=== PATIENT | male | born 1970 | race Caucasian/White ===

== ENCOUNTER 2023-04-30 09:53 | Observation (INO) | payer BC, SELFPAY ==
[2023-04-30] VITALS (20 sets, daily range): BP systolic 168–217; BP diastolic 100–118; PULSE 59–93; RESP 13–24; TEMP 35.8–36.3; O2SAT 98–100; BMI 73.7
--- NOTE | ~2023-04-30 | MR_ITS ---
EXAMINATION: MR brain/brain stem wo/w con DATE: 04/30/2023 17:07 INDICATION: Left-sided weakness TECHNIQUE: Magnetic resonance imaging (MRI) of the brain and brainstem was performed without intraven ous contrast. Sequences included sagittal and axial T1-weighted SE, axial diffusion-weighted FS SE, a xial T2*-weighted GRE, axial T2-weighted FLAIR, and axial T2-weighted FSE. Postcontrast axial and cor onal T1-weighted SE was obtained. Apparent diffusion coefficient (ADC) maps were created. COMPARISON: Head CT and CT angiogram dated 04/30/2023 FINDINGS: Small region of restricted diffusion consistent with acute infarct at the right posterior pastor. Small old infarct in the left cerebellar hemisphere additional small old lacunar infarcts at the right sharron lamus and right basal ganglia. No intracranial hemorrhage or abnormal intracranial mass lesion. There are scattered areas of nonspecific increased T2-weighted signal intensity in the cerebral white angelo er, predominantly involving the deep and periventricular white matter. There are no intraparenchymal signal abnormalities seen on the other pulse sequences. The ventricles are symmetric and normal in si ze. There are no abnormal extra-axial fluid collections. Flow voids are seen in the cerebral arteries on the T2-weighted sequences consistent with their expected patency. Visualized orbits and soft tiss ues are unremarkable. Mild mucosal thickening the paranasal sinuses with mucous retention cyst in the right maxillary sinus. There are no areas of abnormal enhancement on the post contrast images. IMPRESSION: 1. Small acute infarct in the right posterior pastor. 2. Small old infarcts in the left cerebellar hemisphere and at the right thalamus and basal ganglia. 3. A few scattered small nonspecific foci of vasogenic white matter T2 hyperintensity which is within normal limits for age and likely sequela of chronic small vessel schema disease. Reviewed, dictated and finalized at location A. IMPRESSION: 1. Small acute infarct in the right posterior pastor. 2. Small old infarcts in the left cerebellar hemisphere and at the right thalam us and basal ganglia. 3. A few scattered small nonspecific foci of vasogenic white matter T2 hyperint ensity which is within normal limits for age and likely sequela of chronic smal l vessel schema disease.
--- NOTE | ~2023-04-30 | XR_ITS ---
EXAMINATION: XR chest 1V DATE: 04/30/2023 10:38 INDICATION: Chest pain. TECHNIQUE: A single frontal view of the chest was obtained. COMPARISON: None. FINDINGS: The chest demonstrates clear lungs without pneumonia, pleural effusion, or pneumothorax. Th e heart size is normal. IMPRESSION: 1. No acute cardiopulmonary disease. Reviewed, dictated and finalized at location A.
--- NOTE | ~2023-04-30 | CT_ITS ---
EXAMINATION: CTA brain carotid DATE: 04/30/2023 11:40 INDICATION: Left hemiparesis. TECHNIQUE: Computed tomographic angiography (CTA) of the head was performed with 100 mL Omnipaque-350 intravenous contrast. CTA of the neck was performed with intravenous contrast. Automated exposure co ntrol and iterative reconstruction technique were employed. The dose-length product was 1212.57 mGy-c m. Maximum intensity projection and volume rendered 3D-reconstructions were created by the technologi st on a separate workstation. COMPARISON: Head CT 04/30/2023 FINDINGS: HEAD CTA: There are old lacunar infarcts in the right thalamus and right basal ganglia. There is no i ntracranial hemorrhage, acute infarction, or abnormal intracranial mass lesion. There are scattered a reas of low attenuation in the cerebral white matter. The ventricles are normal in size. The orbits a re normal. There is mild mucosal thickening in the paranasal sinuses. The mastoid air cells are roselyn l. Right vertebral artery is dominant. There is no significant stenosis of basilar artery or the post erior cerebral arteries. There is no significant stenosis of the intracranial internal carotid arteri es or anterior or middle cerebral arteries. Anterior communicating artery is normal. Right posterior communicating artery is normal. A left posterior communicating artery is not identified. There is no aneurysm. NECK CTA: There are no pathologically enlarged lymph nodes. There is no significant stenosis of the v ertebral arteries. There is mild plaque in the proximal internal carotid arteries. There is 0% stenos is of the proximal right internal carotid artery relative to normal distal artery lumen diameter (JERED CET criteria). There is 0% stenosis of the proximal left internal carotid artery relative to normal d istal artery lumen diameter. There is severe cervical spondylosis. IMPRESSION: 1. Old lacunar infarcts in the right thalamus and right basal ganglia. 2. Mild nonspecific cerebral white matter disease, which likely represents chronic small vessel ische carlos disease. 3. No aneurysm or significant intracranial arterial stenosis. 4. 0% stenosis of the proximal internal carotid arteries relative to normal distal artery lumen diame ters (NASCET criteria). Reviewed, dictated and finalized at location A. IMPRESSION: 1. Old lacunar infarcts in the right thalamus and right basal ganglia. 2. Mild nonspecific cerebral white matter disease, which likely represents insurance consultant segun small vessel ischemic disease. 3. No aneurysm or significant intracranial arterial stenosis. 4. 0% stenosis of the proximal internal carotid arteries relative to normal dis mike artery lumen diameters (NASCET criteria).
--- NOTE | ~2023-04-30 | CT_ITS ---
EXAMINATION: CT brain wo con INDICATION: Left-sided headache COMPARISON: None TECHNIQUE: Standard unenhanced head CT. The dose-length product (DLP) was 681.00 mGy-cm. The mA was a djusted according to patient size. Iterative reconstruction technique was employed. FINDINGS: There is no intracranial hemorrhage, acute infarction, or abnormal mass lesion. There are o ld lacunar infarcts of the right basal ganglia in the right thalamus. The ventricles are normal. Ther e is no abnormal mass effect or midline shift. The samaniego-white matter differentiation is normal. The b jocelyn cisterns are patent. The orbits are normal. There is a polyp or mucous retention cyst of the rig ht maxillary sinus. IMPRESSION: 1. No acute intracranial abnormality. Reviewed, dictated and finalized at location B.
--- NOTE | ~2023-04-30 | US_ITS ---
EXAMINATION: US renal BI DATE: 04/30/2023 19:07 INDICATION: Kidney injury TECHNIQUE: Multiple ultrasound grayscale images of the kidneys were obtained. COMPARISON: None. FINDINGS: The right kidney measures 10.7 x 4.6 x 6.5 cm. The left kidney measures 12.1 x 6.3 x 6.2 cm. The kidn eys demonstrate normal echogenicity. There is no hydronephrosis in either kidney. No stones identifi ed. The bladder is normal with bilateral ureteral jets visualized on color Doppler. IMPRESSION: 1. Normal kidneys without hydronephrosis. Reviewed, dictated and finalized at location A.
--- NOTE | 2023-04-30 10:11 | ECG_ITS ---
Measurements Intervals [place] Rate: 74 P: 27 NV: 149 QRS: -20 QRSD: 107 T: 16 QT: 380 QTc: 423 Interpretive Statements SINUS RHYTHM VOLTAGE CRITERIA FOR LVH [MEETS CRITERIA IN ONE OF: R(aVL), S(V1), R(V5), R(V5/V6)+S(V1)] NO PREVIOUS ECG AVAILABLE FOR COMPARISON Electronically Signed On 04-30-2023 13:49:46 CDT by Pablo Lau M.D.
--- NOTE | 2023-04-30 10:24 | ED.NEUROSD ---
HPI - Neuro Symptoms/Deficit General Chief Complaint: Neuro Symptoms/Deficit Stated Complaint: Left sided numbness started yesterday Time Seen by Provider: 04/30/23 10:05 Source: patient and RN notes reviewed Mode of arrival: ambulatory History of Present Illness HPI Narrative: This is a 53 year old male with history of hypertension who presents for evaluation of left side weakness. Patient states he woke up yesterday morning with weakness to left side of his body. HE also reports pain to entire left side of his body as well. He also reports numbness to his entire body. He states he was told that he was walking abnormal. He denies headache, blurred vision, nausea and vomiting. He states he was told 1 month ago at an ER that he had high blood pressure and he was started on a medication. HE has not made an appointment with primary care provider, and he ran out of the medication 2 days ago. He denies history of CVA or recent head injury Related Data Home Medications Medication Instructions Recorded Confirmed amlodipine 5 mg tablet 5 mg PO DAILY 04/30/23 04/30/23 Allergies Allergy/AdvReac Type Severity Reaction Status Date / Time No Known Allergies Allergy Verified 04/30/23 15:38 Review of Systems Constitutional: Constitutional: Reports weakness Cardiovascular: Cardiovascular: Denies syncope, Denies rapid heart rate, Denies irregular heart rhythm, Denies leg edema and Denies dyspnea Respiratory: Respiratory: Denies chest congestion, Denies hemoptysis, Denies excessive phlegm production and Denies dyspnea Gastrointestinal: Gastrointestinal: Denies abdominal pain, Denies hematochezia, Denies diarrhea and Denies vomiting Genitourinary: Genitourinary: Denies hematuria, Denies dysuria, Denies penile discharge and Denies testicular pain Musculoskeletal: Musculoskeletal: Denies joint swelling, Denies loss of height and Reports muscle weakness Neurologic: Denies syncope, Reports focal weakness, Reports numbness and Reports weakness PMFSH Past Medical History Medical History (Updated 04/30/23 @ 20:34 by Soni Rodriguez MD) Hypertension Surgical History Surgical History No pertinent past surgical history Family History Family History (Updated 04/30/23 @ 15:50 by FOREST Dubois) Other Unknown family medical history Social History Social History (Updated 04/30/23 @ 15:52 by FOREST Dubois) Social History: 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 He lives somewhere in the area. He wishes to be a full code. He does not elect anyone to be a surrogate at this time Smoking packs per day: 1 Smoking cigarettes per day: 20.0 Years smoked: 30 Smoking pack-years: 30.00 Smoking status: Former smoker Tobacco type: cigarettes Alcohol intake: never Substance use: former Lack of Transportation: No Lack of Food: Never True Current Housing: I Do Not Have Housing Concerned About Future Housing: YES Difficulty Paying Gas/Electric Bills: No Difficulty Paying for Meds: No Currently Unemployed: No Education: Trade/Vocational Certificate Difficulty w/ Childcare or Family Care: No Living arrangements: homeless Occupation/Education: occupation Gender identity (if verbalized by the patient): Male Sexual Orientation (if Verbalized by the Patient): Straight or Heterosexual Spiritual care concerns: No Agree to blood products: Yes Exam Const: General: alert Nutritional Appearance: well nourished Orientation/consciousness: patient oriented x3 HENMT: Head: normal to inspection Throat: posterior oropharynx normal Eyes: Pupils: Equal, round and reactive pupils present EOM: EOMs intact bilaterally Neck: Neck: normal visual inspection Chest: Chest palpation & inspection: normal inspection of the chest Resp: Effort & Inspection: normal respiratory effort Auscultation: clear to auscultation bilaterally Cardio: Rat
[2023-04-30 10:30] LABS: Glucose Point of Care 134 mg/dl (65-105)
[2023-04-30 10:34] LABS: Basophils Absolute Auto 0.1 K/mm3 (0.0-0.1); Basophils Percent Auto 0.8 % (0.2-1.2); Eosinophils Absolute Auto 0.2 K/mm3 (0-0.3); Eosinophils Percent Auto 1.6 % (0-4.4); Hematocrit 42.3 % (42.0-52.0); Hemoglobin 14.7 g/dL (14.0-18.0); Immature Granulocyte Absolute 0.02 K/mm3 (0.00-0.031); Immature Granulocyte Percent A 0.2 % (0-0.5); Lymphocytes Absolute Auto 2.27 K/mm3 (0.9-3.2); Lymphocytes Percent Auto 24.4 % (18.3-44.2); Mean Corpuscular HGB Conc 34.8 g/dl (32-36); Mean Corpuscular Hemoglobin 30.8 pg (26-34); Mean Corpuscular Volume 88.5 fl (80-100); Mean Platelet Volume 10.9 fl (7.4-10.4); Monocytes Absolute Auto 0.7 K/mm3 (0.1-0.6); Monocytes Percent Auto 7.6 % (2.6-8.5); Neutrophils Absolute Auto 6.1 K/mm3 (1.3-6.7); Neutrophils Percent Auto 65.4 % (45.5-73.1); Platelet Count Result 259 k/mm3 (150-375); Red Blood Count 4.78 M/mm3 (4.6-6.20); Red Cell Distribution Width 12.3 % (11.5-14.5); White Blood Count 9.3 K/mm3 (4.5-10.0)
[2023-04-30 10:51] LABS: Prothrombin Time 13.2 Seconds (11.1-14.7)
[2023-04-30 10:52] LABS: Partial Thromboplastin Time 29.4 SECONDS (22.3-36.8)
[2023-04-30 11:13] LABS: Alanine Aminotransferase 36 U/L (6-50); Albumin Level 4.4 g/dL (3.5-5.1); Alkaline Phosphatase 108 U/L (38-126); Anion Gap 5 mmol/L (8-16); Aspartate Amino Transferase 41 U/L (17-59); Bilirubin,Total 0.5 mg/dL (0.2-1.3); Blood Urea Nitrogen 21 mg/dL (9-20); Calcium 9.2 mg/dL (8.4-10.2); Carbon Dioxide 32 mmol/L (22-30); Chloride 104 mmol/L (98-107); Estimated CRCL calculation 57 ml/min; Estimated Glomerular Filt Rate 46; Glucose 122 mg/dL (65-110); Potassium 3.8 mmol/L (3.4-5.0); Sodium 141 mmol/L (137-145)
[2023-04-30 11:24] LABS: Troponin I < 0.012 ng/mL (0.000-0.034)
[2023-04-30] MEDS: hydrALAZINE HCL 20 MG/ML VIAL 10 MG IV PUSH (13:50)
--- NOTE | 2023-04-30 15:13 | ADMGEN ---
This patient, Ronny Covarrubias, was admitted to [facility] Surg Room 303-01. Patient/family oriented to hospital policies and general routines including ID bracelet, bed and alarms, visiting hours, pain management, procedures, bathroom and other care routines, personal items, smoking policy, room service/diet, and visiting hours. Information on how to activate the Rapid Response Team has been discussed. Patient/Family are encouraged to report perceived risks to care and to ask questions if they do not understand what they are told or what they should do.
[2023-04-30 15:29] LABS: Cholesterol 211 mg/dL (0-200); HDL Direct 35 mg/dL; Triglycerides 195 mg/dL (<150)
[2023-04-30 15:41] LABS: LDL Cholesterol Direct 140 mg/dL
--- NOTE | 2023-04-30 15:41 | PM.IMHP ---
H&P: [facility] History of Present Illness Date/Time: 04/30/23 15:41 Chief Complaint: Left sided weakness Narrative: Patient is a 53-year-old male with a past medical history of hypertension, tobacco abuse who presented to the ED with complaints of left-sided weakness. Patient stated he went to bed on 04/28/23 and when he woke up on 04/29/2023 he was weak on the left side and could hardly move his arm and leg on the left side. Patient did state that he had high blood pressure and was recently added in ED which they did give him medication he took all of those however he does not have a primary care provider and was unable to get a refill. He denies having any chest pain, shortness of breath, nausea, vomiting, diarrhea, constipation, weakness, fatigue, visual/hearing changes, syncope, fevers, sweats or chills. He did state that his blood pressure has been high for quite sometime. He also stated that he would be will to go to the MD and was open to any that was available. Currently his BP is 190/100. He has been given hydralazine, which does not seem to make an impact at this time. Will add his amlodipine back on. He did state that he has been able to walk, however, he stated that it has been slow. Head ct did show some old infarcts, and CTA does not show any stenosis or occlusion. MRI is ordered along with echo. 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 He wishes to be a full code. He does not elect anyone to be a surrogate at this time Smoking packs per day: 1 Smoking cigarettes per day: 20.0 Years smoked: 30 Smoking pack-years: 30.00 Smoking status: Former smoker Tobacco type: cigarettes Alcohol intake: never Substance use: former Lack of Transportation: No Lack of Food: Never True Current Housing: I Do Not Have Housing Concerned About Future Housing: YES Difficulty Paying Gas/Electric Bills: No Difficulty Paying for Meds: No Currently Unemployed: No Education: Trade/Vocational Certificate Difficulty w/ Childcare or Family Care: No Living arrangements: homeless Occupation/Education: occupation Gender identity (if verbalized by the patient): Male Sexual Orientation (if Verbalized by the Patient): Straight or Heterosexual Spiritual care concerns: No Agree to blood products: Yes Meds Home Medications and Allergies Home Medications Medication Instructions Recorded Confirmed Type amlodipine 5 mg tablet 5 mg PO DAILY 04/30/23 04/30/23 History Allergies Allergy/AdvReac Type Severity Reaction Status Date / Time No Known Allergies Allergy Verified 04/30/23 15:38 Vital Signs Vital Signs - 24 hr 04/30/23 09:56 04/30/23 10:08 04/30/23 10:16 Temperature 96.4 F L Pulse Rate 93 79 77 Respiratory Rate 24 H 17 21 H Blood Pressure 215/118 H 217/117 H 215/114 H Pulse Oximetry 100 Oxygen Delivery Room Air 04/30/23 10:49 04/30/23 11:02 04/30/23 11:21 Temperature Pulse Rate 77 71 72 Respiratory Rate 20 16 15 Blood Pressure 188/115 H Pulse Oximetry 100 100 100 Oxygen Delivery 04/30/23 11:41 04/30/23 11:42 04/30/23 11:54 Temperature Pulse Rate 69 70 62 Respiratory Rate 17 16 13 Blood Pressure 180/106 H 169/100 H Pulse Oximetry 98 99 Oxygen Delivery 04/30/23 12:01 06/
[2023-04-30] MEDS: ASPIRIN 81 MG CHEWABLE TABLET 324 MG PO (15:42)
[2023-04-30] MEDS: SODIUM CHLORIDE 0.9% IV 1,000 ML 125 ML IV CONT (17:24)
[2023-04-30] MEDS: NICOTINE (*PBKC) 21 MG PATCH 1 PATCH TRANSDERM (17:24)
[2023-04-30] MEDS: amLODIPine BESYLATE 5 MG TABLET PO (17:24)
[2023-05-01] VITALS (12 sets, daily range): BP systolic 146–189; BP diastolic 96–110; PULSE 63–105; RESP 16–18; TEMP 36.2–36.7; O2SAT 99–100
--- NOTE | 2023-05-01 | ECHO_ITS ---
Patient Info Name: Ronny Covarrubias Age: 53 years : 1970 Gender: Male Ht: 67 in Wt: 222 lbs BSA: 2.22 m2 HR: 75 bpm BP: 189 / 99 mmHg Heart Rhythm: Sinus Rhythm Technical Quality: Fair Exam Date: 05/01/2023 10:11 AM Exam Location: [facility] Patient Status: Inpatient Admit Date: 04/30/2023 Staff Ordering Physician: Ronny Patel Ride Operator: Carlos Manuel Garcia RDCS Attending Provider: Mcaario Swain MD Referring Physician: Jorge ZIMMERMAN; Exam Type: CA echo doppler w bubble study Study Info Indications - stroke like symptom Complete two-dimensional, color flow and Doppler transthoracic echocardiogram is performed with agitated saline. Contrast/Agitated Saline Contrast/Ag. Saline: Agitated Saline Amount: 20.00 ml Summary 1. Left ventricular chamber dimension is normal. 2. Left ventricular systolic function is normal, estimated at 60-65%. 3. The left ventricular diastolic function is grade I diastolic dysfunction. 4. Right ventricular systolic function is normal. 5. Intact interatrial septum visualized by color flow and agitated saline imaging. Negative bubble study. 6. There is mild tricuspid valve regurgitation. Left Ventricle Left ventricular chamber dimension is normal. Left ventricular systolic function is normal, estimated at 60-65%. The left ventricular diastolic function is grade I diastolic dysfunction. Right Ventricle Right ventricular chamber dimension is normal. Right ventricular systolic function is normal. Left Atria Left atrial chamber dimension is normal. Right Atria Right atrial chamber dimension is normal. Atrial Septum Intact interatrial septum visualized by color flow and agitated saline imaging. Negative bubble study. Aortic Valve The aortic valve is probable trileaflet. There is no aortic valve stenosis. There is no aortic valve regurgitation. Pulmonic Valve The pulmonic valve is not well visualized. Mitral Valve There is trace mitral valve regurgitation. Tricuspid Valve There is mild tricuspid valve regurgitation. Pericardium/Pleural The pericardium appears epicardial fat pad. There is no pericardial effusion. Inferior Vena Cava Inferior vena cava is not well visualized. Aorta The aortic root size at the sinus of Valsalva is normal. Left Ventricular Outflow Tract Name Value Normal LVOT 2D LVOT Diameter 2.3 cm Pulmonic Valve Name Value Normal RVOT Doppler RVOT Peak Gradient 1 mmHg PV Doppler PV Peak Gradient 4 mmHg Mitral Valve Name Value Normal MV Doppler MV Decel Mckean 408 cm/s2 MV PHT 52 ms
[2023-05-01] MEDS: SODIUM CHLORIDE 0.9% IV 1,000 ML 125 ML IV CONT ×2 (01:48→09:09)
[2023-05-01] MEDS: hydrALAZINE HCL 20 MG/ML VIAL 10 MG IV PUSH (05:21)
[2023-05-01 06:35] LABS: Basophils Absolute Auto 0.1 K/mm3 (0.0-0.1); Basophils Percent Auto 0.5 % (0.2-1.2); Eosinophils Absolute Auto 0.2 K/mm3 (0-0.3); Eosinophils Percent Auto 2.3 % (0-4.4); Hematocrit 44.1 % (42.0-52.0); Hemoglobin 15.2 g/dL (14.0-18.0); Immature Granulocyte Absolute 0.03 K/mm3 (0.00-0.031); Immature Granulocyte Percent A 0.3 % (0-0.5); Lymphocytes Absolute Auto 2.33 K/mm3 (0.9-3.2); Lymphocytes Percent Auto 24.2 % (18.3-44.2); Mean Corpuscular HGB Conc 34.5 g/dl (32-36); Mean Corpuscular Hemoglobin 30.3 pg (26-34); Monocytes Absolute Auto 0.6 K/mm3 (0.1-0.6); Monocytes Percent Auto 6.5 % (2.6-8.5); Neutrophils Absolute Auto 6.4 K/mm3 (1.3-6.7); Neutrophils Percent Auto 66.2 % (45.5-73.1); Platelet Count Result 234 k/mm3 (150-375); Red Blood Count 5.01 M/mm3 (4.6-6.20); Red Cell Distribution Width 12.5 % (11.5-14.5); White Blood Count 9.6 K/mm3 (4.5-10.0)
[2023-05-01 07:00] LABS: Alanine Aminotransferase 38 U/L (6-50); Alkaline Phosphatase 89 U/L (38-126); Anion Gap 7 mmol/L (8-16); Aspartate Amino Transferase 42 U/L (17-59); Bilirubin,Total 0.9 mg/dL (0.2-1.3); Blood Urea Nitrogen 16 mg/dL (9-20); Calcium 8.2 mg/dL (8.4-10.2); Carbon Dioxide 26 mmol/L (22-30); Chloride 104 mmol/L (98-107); Estimated CRCL calculation 119 ml/min; Estimated Glomerular Filt Rate > 60; Glucose 98 mg/dL (65-110); Sodium 137 mmol/L (137-145)
--- NOTE | 2023-05-01 08:45 | P.PNIM_ITS ---
Progress Note: A&P Assessment and Plan (1) Left-sided weakness: Code(s): R53.1 - Weakness Status: Acute Assessment and Plan: * Patient presents with left-sided weakness * Sensations are different and patient stated that he feels a burst of tingling touched * Head CT shows no intracranial abnormality however does show some old infarcts * CTA of the head shows old lacunar infarcts in the right thalamus and right basal ganglia in 0% stenosis of the proximal internal carotid arteries * Brain MRI small acute infarct of the right posterior pastor * Echo with bubble pending read * Lipid panel shows hyperlipidemia with cholesterol of 211, triglycerides 195, LDL 140, HDL 35 * A1c is 6.0, glucose is stable at 122 * Start aspirin, atorvastatin * Will need plavix will wait for BP to be better controlled * Neurology consulted * PT and OT (2) Acute stroke due to ischemia: Code(s): I63.9 - Cerebral infarction, unspecified Status: Acute Assessment and Plan: See above (3) Paresthesia: Code(s): R20.2 - Paresthesia of skin Status: Acute Assessment and Plan: * Complaints of paresthesia in the left side * TIA/stroke workup in process * Neurology consulted * Noted right sided stroke (4) Hyperlipidemia: Qualifiers: Hyperlipidemia type: moderate mixed hyperlipidemia not requiring statin therapy Qualified Code(s): E78.2 - Mixed hyperlipidemia Code(s): E78.5 - Hyperlipidemia, unspecified Status: Acute Assessment and Plan: * Cholesterol 211, triglycerides 195, LDL 140, HDL 35 * Start atorvastatin * Encouraged low-fat diet (5) Kidney injury: Qualifiers: Encounter type: initial encounter Laterality: unspecified laterality Qualified Code(s): S37.009A - Unspecified injury of unspecified kidney, initial encounter Code(s): S37.009A - Unspecified injury of unspecified kidney, initial encounter Status: Acute Assessment and Plan: * Current BUN and creatinine is 21/1.60 * Currently down at 16/1.20 * Could be a chronic kidney disease with his chronic hypertension * Unknown baseline * Stop fluids at this time * Continue trend BUN and creatinine * Avoid nephrotoxic medications * Strict I&Os (6) Hypertension: Code(s): I10 - Essential (primary) hypertension Status: Acute Assessment and Plan: * Current blood pressure is 189/99 * Increased amlodipine to 10mg add lisinopril 10mg PO * Hydralazine p.r.n. * Trend blood pressure * Adjust therapy as indicated * Most likely the cause of the left-sided weakness and kidney injury * Allow some hypertension until stroke is ruled out (7) Tobacco abuse: Code(s): Z72.0 - Tobacco use Status: Acute Assessment and Plan: * Chronic smoker * Patch ordered * Smoking cessation education given Time Spent With Patient Time: 38 minutes Time with patient: Greater than 35 minutes Subjective Date/time seen: 05/01/23844 Interval history: 05/01/23844 Patient is sitting in bed eating breakfast. Patient states that he feels okay. He has a really poor historian as he does not really wanted to you much. He does live in his truck and he is trying to drive down the [place]. blood pressure s
--- NOTE | 2023-05-01 08:45 | PM.IMPN ---
Progress Note: A&P Assessment and Plan (1) Left-sided weakness: Code(s): R53.1 - Weakness Status: Acute Assessment and Plan: Patient presents with left-sided weakness Sensations are different and patient stated that he feels a burst of tingling touched Head CT shows no intracranial abnormality however does show some old infarcts CTA of the head shows old lacunar infarcts in the right thalamus and right basal ganglia in 0% stenosis of the proximal internal carotid arteries Brain MRI small acute infarct of the right posterior pastor Echo with bubble pending read Lipid panel shows hyperlipidemia with cholesterol of 211, triglycerides 195, LDL 140, HDL 35 A1c is 6.0, glucose is stable at 122 Start aspirin, atorvastatin Will need plavix will wait for BP to be better controlled Neurology consulted PT and OT (2) Acute stroke due to ischemia: Code(s): I63.9 - Cerebral infarction, unspecified Status: Acute Assessment and Plan: See above (3) Paresthesia: Code(s): R20.2 - Paresthesia of skin Status: Acute Assessment and Plan: Complaints of paresthesia in the left side TIA/stroke workup in process Neurology consulted Noted right sided stroke (4) Hyperlipidemia: Qualifiers: Hyperlipidemia type: moderate mixed hyperlipidemia not requiring statin therapy Qualified Code(s): E78.2 - Mixed hyperlipidemia Code(s): E78.5 - Hyperlipidemia, unspecified Status: Acute Assessment and Plan: Cholesterol 211, triglycerides 195, LDL 140, HDL 35 Start atorvastatin Encouraged low-fat diet (5) Kidney injury: Qualifiers: Encounter type: initial encounter Laterality: unspecified laterality Qualified Code(s): S37.009A - Unspecified injury of unspecified kidney, initial encounter Code(s): S37.009A - Unspecified injury of unspecified kidney, initial encounter Status: Acute Assessment and Plan: Current BUN and creatinine is 21/1.60 Currently down at 16/1.20 Could be a chronic kidney disease with his chronic hypertension Unknown baseline Stop fluids at this time Continue trend BUN and creatinine Avoid nephrotoxic medications Strict I&Os (6) Hypertension: Code(s): I10 - Essential (primary) hypertension Status: Acute Assessment and Plan: Current blood pressure is 189/99 Increased amlodipine to 10mg add lisinopril 10mg PO Hydralazine p.r.n. Trend blood pressure Adjust therapy as indicated Most likely the cause of the left-sided weakness and kidney injury Allow some hypertension until stroke is ruled out (7) Tobacco abuse: Code(s): Z72.0 - Tobacco use Status: Acute Assessment and Plan: Chronic smoker Patch ordered Smoking cessation education given Time Spent With Patient Time: 38 minutes Time with patient: Greater than 35 minutes Subjective Date/time seen: 05/01/23844 Interval history: 05/01/23844 Patient is sitting in bed eating breakfast. Patient states that he feels okay. He has a really poor historian as he does not really wanted to you much. He does live in his truck and he is trying to drive down the [place]. blood pressure still out of control. He did have small acute infarct in does have some significant weakness on the left side. Echo still pending at this time 04/30/23? 15:41 Patient is a 53-year-old male with a past medical history of hypertension, tobacco abuse who presented to the ED with complaints of left-sided weakness.? Patient stated he went to bed on 04/28/23 and when he woke up on 04/29/2023 he was weak on the left side and could hardly move his arm and leg on the left side.? Patient did state that he had high blood pressure and was recently added in ED which they did give him medication he took all of those however he does not h
[2023-05-01] MEDS: amLODIPine BESYLATE 5 MG TABLET 10 MG PO (09:10)
[2023-05-01] MEDS: ATORVASTATIN 40 MG TABLET PO (09:10)
[2023-05-01] MEDS: ASPIRIN 81 MG ENTERIC TABLET PO (09:12)
[2023-05-01] MEDS: NICOTINE (*PBKC) 21 MG PATCH 1 PATCH TRANSDERM (09:22)
--- NOTE | 2023-05-01 09:37 | PC.NURSE ---
I, Christina Ribeiro ([facility] [place] passed all of the meds at 0922 not JND.
[2023-05-01] MEDS: lisinopriL 10 MG TABLET PO (10:39)
--- NOTE | 2023-05-01 16:21 | PC.NURSE ---
Pt has reported no pain. Pt states that he has numbness on the left side of his body. Pt is not very forthcoming with health history. Pt tolerating ambulation. Pt has been resting for majority of shift. Pt able to perform neuro checks. Will continue to monitor pt.
[2023-05-02] VITALS (10 sets, daily range): BP systolic 148–190; BP diastolic 82–106; PULSE 60–94; RESP 14–20; TEMP 35.7–36.6; O2SAT 98–100
[2023-05-02] MEDS: ATORVASTATIN 40 MG TABLET PO (09:27)
[2023-05-02] MEDS: ASPIRIN 81 MG ENTERIC TABLET PO (09:27)
[2023-05-02] MEDS: amLODIPine BESYLATE 5 MG TABLET 10 MG PO (09:27)
[2023-05-02] MEDS: lisinopriL 10 MG TABLET PO ×2 (09:27→11:45)
--- NOTE | 2023-05-02 11:45 | WPDNEURCNPN ---
Consult date: 05/02/23 HPI: Ronny Covarrubias is a 53 year old male admitted to the hospital through the emergency room for the complaints of left-sided numbness in addition to ongoing history of hypertension as per the information available he woke up yesterday morning with weakness to the left side of the body and pain on the left side of body as well he was told by the other people that is walking abnormal he gave no history of any visual difficulties in the ER he was noted to have hypertension was started on antihypertensive medication his home medications included amlodipine 5 mg daily he is not allergic to any medication he gave history of being former smoker with 30 smoking pack years no alcohol an initial exam in the emergency room documented the pronator drift of the left upper extremity in addition to hyperesthesia of the left upper and left lower extremity vital signs were with blood pressure of 215/118 repeat 196/100 CBC normal, BMP normal, except the borderline creatinine of 1.60 cholesterol was 211 with triglyceride [address] scan was negative and the CTA documented old lacunar infarct in right thalamus and right basal ganglia with no aneurysm or any territorial involvement of the intracranial circulation EKG without atrial fibrillation [facility], [facility] Past Medical History Medical History (Updated 05/01/23 @ 13:58 by FOREST Dubois) Hypertension Surgical History Surgical History No pertinent past surgical history Family History Family History (Updated 04/30/23 @ 15:50 by FOREST Dubois) Other Unknown family medical history Social History Social History (Updated 04/30/23 @ 15:52 by FOREST Dubois) 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 He lives somewhere in the area. He wishes to be a full code. He does not elect anyone to be a surrogate at this time Smoking packs per day: 1 Smoking cigarettes per day: 20.0 Years smoked: 30 Smoking pack-years: 30.00 Smoking status: Former smoker Tobacco type: cigarettes Alcohol intake: never Substance use: former Lack of Transportation: No Lack of Food: Never True Current Housing: I Do Not Have Housing Concerned About Future Housing: YES Difficulty Paying Gas/Electric Bills: No Difficulty Paying for Meds: No Currently Unemployed: No Education: Trade/Vocational Certificate Difficulty w/ Childcare or Family Care: No Living arrangements: homeless Occupation/Education: occupation Gender identity (if verbalized by the patient): Male Sexual Orientation (if Verbalized by the Patient): Straight or Heterosexual Spiritual care concerns: No Agree to blood products: Yes Meds Home Medications and Allergies Home Medications Medication Instructions Recorded Confirmed Type amlodipine 5 mg tablet 5 mg PO DAILY 04/30/23 04/30/23 History Allergies Allergy/AdvReac Type Severity Reaction Status Date / Time No Known Allergies Allergy Verified 04/30/23 15:38 Vital Signs Vital Signs - 24 hr 05/01/23 12:00 05/01/23 12:03 05/01/23 16:01 Temperature 36.3 C L Pulse Rate 88 105 H 63 Respiratory Rate 16 Blood Pressure 146/98 H Pulse Oximetry 100 Oxygen Delivery Fraction of Inspired Oxygen 05/01/23 16:32 05/01/23 20:00 05/01/23 20:00 Temperature 36.5 C 36.2 C L Pulse Rate 66 71 Respiratory Rate 16 18 Blood Pressure 165/96 H 186/110 H Pulse Oximetry 100 100 Oxygen Delivery Room Air Fraction of Inspired Oxygen 05/01/23 20:00 05/02/23 00:56 05/02/23 00:00 Temperature 36.2 C L Pulse Rate 68 91 60 Respiratory Rate 18 Blood Pressure 190/106 H Pulse Oximetry 100 Oxygen Delivery Fraction of Inspired Oxygen 05/02/23 04:00 05/02/23 06:07 05/02/23 05:00 Temperature 36.5 C Pulse Rate 63 62 Respiratory Rate 18 Blood Pressure 150/90 H 150/90 H Pulse Oximetry 99 Oxygen Delivery Fraction of Insp
--- NOTE | 2023-05-02 11:49 | WPDNEURCNPN ---
Assessment and Plan Assessment and plan (1) Acute stroke due to ischemia: Code(s): I63.9 - Cerebral infarction, unspecified Status: Acute (2) Left-sided weakness: Code(s): R53.1 - Weakness Status: Acute Plan Right hemispheric subcortical stroke on the basis of small vessel disease but would need the echocardiogram for the further documentation. 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 He lives somewhere in the area. He wishes to be a full code. He does not elect anyone to be a surrogate at this time Smoking packs per day: 1 Smoking cigarettes per day: 20.0 Years smoked: 30 Smoking pack-years: 30.00 Smoking status: Former smoker Tobacco type: cigarettes Alcohol intake: never Substance use: former Lack of Transportation: No Lack of Food: Never True Current Housing: I Do Not Have Housing Concerned About Future Housing: YES Difficulty Paying Gas/Electric Bills: No Difficulty Paying for Meds: No Currently Unemployed: No Education: Trade/Vocational Certificate Difficulty w/ Childcare or Family Care: No Living arrangements: homeless Occupation/Education: occupation Gender identity (if verbalized by the patient): Male Sexual Orientation (if Verbalized by the Patient): Straight or Heterosexual Spiritual care concerns: No Agree to blood products: Yes Meds Home Medications and Allergies Home Medications Medication Instructions Recorded Confirmed Type amlodipine 5 mg tablet 5 mg PO DAILY 04/30/23 04/30/23 History Allergies Allergy/AdvReac Type Severity Reaction Status Date / Time No Known Allergies Allergy Verified 04/30/23 15:38 Vital Signs Vital Signs - 24 hr 05/01/23 12:00 05/01/23 12:03 05/01/23 16:01 Temperature 36.3 C L Pulse Rate 88 105 H 63 Respiratory Rate 16 Blood Pressure 146/98 H Pulse Oximetry 100 Oxygen Delivery Fraction of Inspired Oxygen 05/01/23 16:32 05/01/23 20:00 05/01/23 20:00 Temperature 36.5 C 36.2 C L Pulse Rate 66 71 Respiratory Rate 16 18 Blood Pressure 165/96 H 186/110 H Pulse Oximetry 100 100 Oxygen Delivery Room Air Fraction of Inspired Oxygen 05/01/23 20:00 05/02/23 00:56 05/02/23 00:00 Temperature 36.2 C L Pulse Rate 68 91 60 Respiratory Rate 18 Blood Pressure 190/106 H Pulse Oximetry 100 Oxygen Delivery Fraction of Inspired Oxygen 05/02/23 04:00 05/02/23 06:07 05/02/23 05:00 Temperature 36.5 C Pulse Rate 63 62 Respiratory Rate 18 Blood Pressure 150/90 H 150/90 H Pulse Oximetry 99 Oxygen Delivery Fraction of Inspired Oxygen 05/02/23 08:00 05/02/23 09:21 Temperature 36.2 C L Pulse Rate 63 Respiratory Rate 16 Blood Pressure 150/93 H Pulse Oximetry 99 98 Oxygen Delivery Room Air Fraction of Inspired Oxygen 21 Exam Narrative: revealed him to be awake alert cooperative in no obvious acute distress head normocephalic with no cranial bruit year nose throat examination normal neck supple with no cervical bruit no thyromegaly no lymphadenopathy heart regular with no murmur lungs clear to auscultation abdomen is soft non 2 brain normal bowel sounds neurological examination revealed him to be awake alert cooperative in no obvious acute distress his speech nor dysphasic not dysarthric not dysphonic pupils round regular feels the vision full extraocular movements full face symmetrical tongue mid
--- NOTE | 2023-05-02 13:30 | PM.DS ---
DS: Admitting Diagnosis Discharge Date 05/02/23 1330 Admitting Diagnosis Acute stroke DS: Discharge Diagnosis Discharge Diagnosis (1) Left-sided weakness: Code(s): R53.1 - Weakness Status: Acute Assessment and Plan: Patient presents with left-sided weakness Sensations are different and patient stated that he feels a burst of tingling touched Head CT shows no intracranial abnormality however does show some old infarcts CTA of the head shows old lacunar infarcts in the right thalamus and right basal ganglia in 0% stenosis of the proximal internal carotid arteries Brain MRI small acute infarct of the right posterior pastor Echo with bubble neg bubble study Lipid panel shows hyperlipidemia with cholesterol of 211, triglycerides 195, LDL 140, HDL 35 A1c is 6.0, glucose is stable at 122 Start aspirin, atorvastatin Will need plavix for 4 weeks Neurology consulted PT and OT (2) Acute stroke due to ischemia: Code(s): I63.9 - Cerebral infarction, unspecified Status: Acute Assessment and Plan: See above (3) Paresthesia: Code(s): R20.2 - Paresthesia of skin Status: Acute Assessment and Plan: Complaints of paresthesia in the left side TIA/stroke workup in process Neurology consulted Noted right sided stroke (4) Hyperlipidemia: Qualifiers: Hyperlipidemia type: moderate mixed hyperlipidemia not requiring statin therapy Qualified Code(s): E78.2 - Mixed hyperlipidemia Code(s): E78.5 - Hyperlipidemia, unspecified Status: Acute Assessment and Plan: Cholesterol 211, triglycerides 195, LDL 140, HDL 35 Start atorvastatin Encouraged low-fat diet (5) Kidney injury: Qualifiers: Encounter type: initial encounter Laterality: unspecified laterality Qualified Code(s): S37.009A - Unspecified injury of unspecified kidney, initial encounter Code(s): S37.009A - Unspecified injury of unspecified kidney, initial encounter Status: Acute Assessment and Plan: Current BUN and creatinine is 21/1.60 Currently down at 16/1.20 Could be a chronic kidney disease with his chronic hypertension Unknown baseline Stop fluids at this time Continue trend BUN and creatinine Avoid nephrotoxic medications Strict I&Os (6) Hypertension: Code(s): I10 - Essential (primary) hypertension Status: Acute Assessment and Plan: Current blood pressure is 189/99 Increased amlodipine to 10mg add lisinopril 10mg PO Hydralazine p.r.n. Trend blood pressure Adjust therapy as indicated Most likely the cause of the left-sided weakness and kidney injury Allow some hypertension until stroke is ruled out (7) Tobacco abuse: Code(s): Z72.0 - Tobacco use Status: Acute Assessment and Plan: Chronic smoker Patch ordered Smoking cessation education given DS: Summary Hospital Course Hospital Course: Patient is a 53-year-old male with a past medical history of hypertension who presented to the ED with complaints of left-sided weakness and numbness and tingling. Head CT did show some old infarcts and CTA did confirm. CTA also showed 0% stenosis of the internal carotid arteries. MRI did show small acute infarct to the right posterior pastor echo with bubble study was done and did not show any septal deviation with an EF of 60 65% A1c was 6.0. Lipid panel did show hyperlipidemia with cholesterol 211, triglycerides of 195, LDL of 140 and HDL of 35. Patient has been started on aspirin atorvastatin. Blood pressure has been noted to be elevated roughly 195/100. Patient was started back on amlodipine which has been increased to 10 mg and lisinopril which has been increased to 20 mg. Currently blood pressure is stable. Patient also noted was noted to have an FRANCISCA with a creatinine of 1.6 upon arrival and is currentl
--- NOTE | 2023-05-02 13:30 | P.DS_ITS ---
DS: Admitting Diagnosis Discharge Date 05/02/23 1330 Admitting Diagnosis Acute stroke DS: Discharge Diagnosis Discharge Diagnosis (1) Left-sided weakness: Code(s): R53.1 - Weakness Status: Acute Assessment and Plan: * Patient presents with left-sided weakness * Sensations are different and patient stated that he feels a burst of tingling touched * Head CT shows no intracranial abnormality however does show some old infarcts * CTA of the head shows old lacunar infarcts in the right thalamus and right basal ganglia in 0% stenosis of the proximal internal carotid arteries * Brain MRI small acute infarct of the right posterior pastor * Echo with bubble neg bubble study * Lipid panel shows hyperlipidemia with cholesterol of 211, triglycerides 195, LDL 140, HDL 35 * A1c is 6.0, glucose is stable at 122 * Start aspirin, atorvastatin * Will need plavix for 4 weeks * Neurology consulted * PT and OT (2) Acute stroke due to ischemia: Code(s): I63.9 - Cerebral infarction, unspecified Status: Acute Assessment and Plan: See above (3) Paresthesia: Code(s): R20.2 - Paresthesia of skin Status: Acute Assessment and Plan: * Complaints of paresthesia in the left side * TIA/stroke workup in process * Neurology consulted * Noted right sided stroke (4) Hyperlipidemia: Qualifiers: Hyperlipidemia type: moderate mixed hyperlipidemia not requiring statin therapy Qualified Code(s): E78.2 - Mixed hyperlipidemia Code(s): E78.5 - Hyperlipidemia, unspecified Status: Acute Assessment and Plan: * Cholesterol 211, triglycerides 195, LDL 140, HDL 35 * Start atorvastatin * Encouraged low-fat diet (5) Kidney injury: Qualifiers: Encounter type: initial encounter Laterality: unspecified laterality Qualified Code(s): S37.009A - Unspecified injury of unspecified kidney, initial encounter Code(s): S37.009A - Unspecified injury of unspecified kidney, initial encounter Status: Acute Assessment and Plan: * Current BUN and creatinine is 21/1.60 * Currently down at 16/1.20 * Could be a chronic kidney disease with his chronic hypertension * Unknown baseline * Stop fluids at this time * Continue trend BUN and creatinine * Avoid nephrotoxic medications * Strict I&Os (6) Hypertension: Code(s): I10 - Essential (primary) hypertension Status: Acute Assessment and Plan: * Current blood pressure is 189/99 * Increased amlodipine to 10mg add lisinopril 10mg PO * Hydralazine p.r.n. * Trend blood pressure * Adjust therapy as indicated * Most likely the cause of the left-sided weakness and kidney injury * Allow some hypertension until stroke is ruled out (7) Tobacco abuse: Code(s): Z72.0 - Tobacco use Status: Acute Assessment and Plan: * Chronic smoker * Patch ordered * Smoking cessation education given DS: Summary Hospital Course Hospital Course: Patient is a 53-year-old male with a past medical history of hypertension who presented to the ED with complaints of left-sided weakness and numbness and tingling. Head CT did show some old infarcts and CTA did confirm. CTA also showed 0% stenosis of the internal carotid arteries. MRI did show sma
--- NOTE | 2023-05-02 18:03 | PCCCNOTE ---
Called received from RN requesting discharge resources for patient as he no longer has a ride or place to go. Met with patient in Room 303, prior to admission patient was living in his car and that was his original plan for discharge. Currently a friend has his car and may or may not be picking him up. Patient was told by a friend that [facility] has a place he can stay at for the week. Patient denies any service or status. Provided patient with list of hotels but he does not have any money. Explained that homeless shelters in [facility] require a screening through [facility] Homeless Hotline which is only open on weekdays. Advised that [facility] is always available. This care specialist offers to call for him. Called to [facility], per rep there is a mcc in [address] and the containers sales representative provides a number. Called to the number which is actually the [facility] Homeless Hotline. Called to [facility] and there was no answer, called to [facility] and spoke with a rep that there program is not up and running yet and must be referred by [facility]. Called to [facility] and sw with rep that confirms that night program is available. Met with patient and provide all resources. Patient does NOT want to go to the walk in mcc at [facility]. He requests to get to [place]. Requests to go to [facility] in [place] on [facility]. Cab voucher written as requested and provided to RN. Bus tokens given to patient for additional transportation if needed.
== END 2023-05-02 18:00 | disposition home or self-care (01) ==
LOC: ANHED 10:37 → ANH3MEDSUR 14:50
PROVIDERS: Nurse Practitioner; Admitting Provider Internal Medicine; Emergency Provider General Practice; Visit Provider Student in an Organized Health Care Education/Training Program
DX: R53.1 Weakness (principal); I63.9 Cerebral infarction, unspecified; R20.2 Paresthesia of skin; E78.2 Mixed hyperlipidemia; S37.009A Unspecified injury of unspecified kidney, initial encounter; I11.9 Hypertensive heart disease without heart failure; R26.9 Unspecified abnormalities of gait and mobility; R90.82 White matter disease, unspecified; Z87.891 Personal history of nicotine dependence; Z79.899 Other long term (current) drug therapy; Z86.73 Personal history of transient ischemic attack (TIA), and cerebral infarction without residual deficits
CPT/HCPCS: 36415; 70450; 70496; 70498; 70553; 71045; 76775; 80053; 80061; 82948; 83036; 84484; 85025; 85610; 85730; 93005; 93306; 96361; 96374; 96375; 96376; 97116; 97161; 97165; 97535; 99284; 99285; A9270; A9577; G0378; J0360; J7030; Q9967

== ENCOUNTER 2025-11-16 14:12 | Outpatient (CLI) | payer MEDICAID, SELFPAY ==
--- OUTSIDE RECORDS SUMMARY | 2025-03-06 14:40 | XMS_ITS ---
Author Organization [facility] Address [address] [place] [address] Phone [phone] Care Team Providers Care Acid Purification Equipment Operator Name Role Phone Hoa Harris Primary Care Provider [phone] REASON FOR VISIT f/u Social History Sex Observation Social History Observation Description Sex Observation Male Sexual Orientation Social History Observation Description Sexual Orientation Straight or heterose xual Gender Identity Social History Observation Description Gender Identity Male Encounters Date Time Type Facility Location Provider Diagnosis 03/06/2025 02:40 PM Office Visit [place] [address] [place] [address] Hoa Harris Plan Of Treatment No Information Medical (General) History Medical History History ICD Code side pain (left) DOC: meth Surgical History Surgery Date(Month/Year) wrist surgery 1995 Hospitalization History Reason Date(Month/Year) stroke 05/21 stroke 05/22 Progress Notes * Ronny RANDHAWADOB:[birth year] (55 yo M)Acc No.[id number]:03/06/2025 UNLOCKED PROGRESS NOTE Progress Notes Patient: Ronny MARLEY Provider: Claudette Harris APRN :1970 A ge:54 Y S ex:Male Date:03/06/2025 Address:[address] [place], [place] [id number] Subjective: * Chief Complaints: * 1 . F/u. * Screening: * * Medical History: Objective: * Vitals: Assessment: Plan: * Treatment: * * Electronic signature of Kavita Harris , [id number] on 11/16/2025 at 02:17 PM JOB BOSS Sign off status: Pending * Provider: Claudette Harris APRN Date: 0 03/06/2025 Generated for Perri Chin/Itzel on: 1 01/17/2025 02:17 PM JOB BOSS
--- OUTSIDE RECORDS SUMMARY | 2025-09-14 09:00 | XMS_ITS ---
Author Organization [facility] Address [address] [place] [address] Phone [phone] Care Team Providers Care Drafter Geophysical Name Role Phone KimberlyHoa Primary Care Provider Adrian Mota Unavailable [phone] REASON FOR VISIT Urine culture per Svetlana Social History Sex Observation Social History Observation Description Sex Observation Male Sexual Orientation Social History Observation Description Sexual Orientation Straight or heterose xual Gender Identity Social History Observation Description Gender Identity Male Encounters Date Time Type Facility Location Provider Diagnosis 09/14/2025 09:00 AM Office Visit [place] [address] [place] [address] Adrian Mota Plan Of Treatment No Information Medical (General) History Medical History History ICD Code side pain (left) DOC: meth Surgical History Surgery Date(Month/Year) wrist surgery 1995 Hospitalization History Reason Date(Month/Year) stroke 05/21 stroke 05/22 Progress Notes * Ronny RANDHAWADOB:[birth year] (55 yo M)Acc No.[id number]:09/14/2025 UNLOCKED PROGRESS NOTE Patient: Ronny MARLEY Provider: Mary Lou Mota :1970 A ge:55 Y S ex:Male Date:09/14/2025 Address:[address] [place], [place] [id number] Pcp:Hoa Harris Subjective: * Chief Complaints: * 1 . Urine culture per Svetlana. * Screening: * * Medical History: Objective: * Vitals: Assessment: Plan: * Treatment: * * Electronic signature of Tia Mota , [id number] on 11/16/2025 at 02:17 PM DELINQUENT ACCOUNT CLERK Sign off status: Pending * Provider: Mary Lou Mota Date: 1 Generated for Perri olivera/Angelo/Kenyasmitting on: 01/17/2025 02:17 PM DELINQUENT ACCOUNT CLERK
--- NOTE | ~2025-11-16 | US_ITS ---
EXAMINATION: US renal BI, 11/16/2025 14:45 [employer] HISTORY: CKD STAGE G3Aa/A1 Comparison: None Technique: Castro-scale and color Doppler images were obtained. Findings: KIDNEYS: The renal cortices are thinned and echogenic, no solid masses, cysts or calculi, no hydronephrosis. Right Kidney: Right kidney measures 11.1 x 4.1 x 4.1 cm. Left Kidney: Left kidney 11.1 x 6 x 5 cm. Bladder: The bladder is unremarkable. . Impression: Medical renal disease. No obstruction Reviewed, dictated and finalized at location P. R [employer]PER[employer] SPECIALIST Impression: Medical renal disease. No obstruction
--- OUTSIDE RECORDS SUMMARY | 2025-11-16 14:17 | XMS_ITS | Clinical Summary ---
Author Organization [facility] Address [address] [address] Phone Care Team Providers Care Security Coordinator Name Role Phone Adrian Mota MD Primary Care Provider [phone] Allergies No known active allergies Medications gabapentin (NEURONTIN) 300 MG CapsuleIndicat ions:Neuropath ic Pain Take 300 mg by mouth 2 times daily. Indications: Neuropathic Pain Active labetalol (NORMODYNE) 200 MG Tablet Take 200 mg by mouth 2 times daily. Active lisinopril-hyd roCHLOROthiazi de (PRINZIDE, ZESTORETIC) 10-12.5 MG Tablet Take 1 Tablet by mouth daily. Active NIFEdipine CR (PROCARDIA-XL) 90 MG TABLET SR 24 HR Take 90 mg by mouth every morning. Active omeprazole (PriLOSEC) 20 MG CAPSULE DELAYED RELEASE Take 20 mg by mouth daily. Active tiZANidine (ZANAFLEX) 4 MG Tablet Take 4 mg by mouth nightly as needed. Active atorvastatin (LIPITOR) 80 MG Tablet Take by mouth daily. Active sertraline (ZOLOFT) 25 MG Tablet Take 25 mg by mouth daily. 11/14/20 25 Discontin ued(Med List Clean Up) Encounters Date Type Department Care Team Description 11/14/2025 Travel 10/30/2025 Telephone [facility] - [facility]enter[facility] [place] [address] Kelby Rosario MD from Last 3 Months Family History Medical History Relation Name Comments Congestive Heart Failure Father Cancer Mother Relation Name Status Comments Father Mother Social History Tobacco Use Types Packs/Day Years Used Date Smoking Tobacco: Every Day Cigarettes Smokeless Tobacco: Never Tobacco Cessation:Ready to Q uit: Not Asked; Counseling Given: Not Answered Alcohol Use Standard Drinks/Week Comments Not Currently 0 (1 standard drink = 0.6 oz pur e alcohol) Sex and Gender Information Value Date Recorded Sex Assigned at Not on file Legal Sex Male 1:24 PM ENG[employer]ING 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 Gender Identity Not on file Sexual Orientation Not on file Last Filed Vital Signs Vital Sign Reading Time Taken Comments Blood Pressure - - Pulse - - Temperature - - Respiratory Rate - - Oxygen Saturation - - Inhaled Oxygen Concentration - - Weight 104.3 kg (230 lb) 11/14/2025 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 Height 170.2 cm (5' 7) 11/14/2025 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 Body Mass Index 36.02 11/14/2025 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 Plan of Treatment Upcoming Encounters Date Type Department Care Team (Late st Contact Info) Description 11/20/2025 10:45 AM ENGINEERING [employer]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 Office Visit [facility] - General Surgery [facility] [address] [phone] Clifford Kearney MD [address] [address] 11/28/2025 10:30 AM ENGINEERING PR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 [facility] [address] [place] [address] Michael Duggan MD [address] [address] 11/28/2025 10:30 AM ENGINEERING PR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 - 11/28/2025 11:00 AM ENGINEERING PR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 [facility] [address] [place] [address] Michael Duggan MD [address] [address] COLONOSCOPY Scheduled Procedures Name Priority Associated Diagnoses Date/Ti me COLONOSCOPY SCREENING 11/28/2025 10:30 AM 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 [employer]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 Health Maintenance Due Date Last Done Comments Hepatitis C Virus (HCV) Screening 1972 TdaP Immunization 1972 Hepatitis B Immunization (1 of 3 - 19+ 3-dose series) 1991 Cologuard 2017 Colonoscopy 2017 Colorectal Cancer Screening 2017 Immunochemical Fecal Occult Blood 2017 Pneumococcal Immunization (5 0+ years) (1 of 1 - PCV) 2022 Zoster Immunization (1 of 2) 2022 Influenza Immunization (#1) 2025 SARS-COV-2 Immunization (1 - 2024- season) 2025 Respiratory Syncytial Virus (RSV) Immunization (Adult) (1 - 1-dose 75+ series) 2047 Human Papillomavirus (HPV) Immunization (No Doses Required) Completed Meningococcal Immunization (ACWY) Aged Out No longer eligible based on patient's age to complete this topic Rotavirus Immunization Aged Out No lo nger eligible based on patient's age to complete this topic Insurance MEDICAID [employer] [facility] Care Teams Security Coordinator Relationship Specialty Start Date End Date Adrian Mota MD [address] [place] [phone] PCP - General Internal Medicine 10/22/25
--- OUTSIDE RECORDS SUMMARY | 2025-11-16 14:17 | XMS_ITS | Patient Health Record ---
Author Organization [facility] Address [address] [place] [address] Phone [phone] Care Team Providers Care Plastic Surgery Technician Name Role Phone Hoa Harris Primary Care Provider Adrian Mota Unavailable [phone] Manuel Pierce MD Unavailable Tosha Mart APRN Unavailable Aminata Ricardo Unavailable [phone] Allergies No Known Allergies Results Component Value Reference Range Flag Notes Renal Panel (10) Order date: 09/24/2025 Reviewed date:10/10/2025 10:24:23 AM Interpretation: Performing Lab:[facility], [address] [facility], Phone - [phone], Director - PhDRicchiuti Notes/Report: Glucose 238 70-99 mg/dL H BUN 23 6-24 mg/dL Creatinine 1.30 0.76-1.27 mg/dL H eGFR 66 >59 mL/min/1.73 BUN/Creatinine Ratio 18 9-20 Sodium 135 134-144 mmol/L Potassium 4.3 3.5-5.2 mmol/L Chloride 99 96-106 mmol/L Carbon Dioxide, Total 21 20-29 mmol/L Calcium 9.7 8.7-10.2 mg/dL Phosphorus 3.3 2.8-4.1 mg/dL Albumin 4.5 3.8-4.9 g/dL UA/M w/rflx Culture, Routine Order date: 09/24/2025 Reviewed date:10/10/2025 10:24:23 AM Interpretation: Performing [facility], [address] [facility], Phone - [phone], Director [facility] Notes/Report: Specific [place] 1.015 1.005-1.030 pH 6.0 5.0-7.5 Urine-Color Yellow Yellow Appearance Clear Clear WBC Esterase Negative Negative Protein Negative Negative/Trace Glucose 3+ Negative A Ketones Negative Negative Occult Blood Negative Negative Bilirubin Negative Negative Urobilinogen,Semi-Qn 0.2 0.2-1.0 mg/dL Nitrite, Urine Negative Negative Microscopic Examination Microscopic foll ows if indicated. Microscopic Examination See below: Microscopic was indicated and was performed. Urinalysis Reflex This sp ecimen will not reflex to a Urine Culture. WBC None seen 0 - 5 /hpf RBC None seen 0 - 2 /hpf Epithelial Cells (non renal) None seen 0 - 10 /hpf Casts None seen None seen /lpf Bacteria None seen None seen/Few Iron and TIBC* Order date: 09/24/2025 Reviewed date:10/10/2025 10:24:23 AM Interpretation: Performing Lab:[facility], [address] [facility], Phone - [phone], [facility] Notes/Report: Iron Bind.Cap.(TIBC) 302 250-450 ug/dL UIBC 234 111-343 ug/dL Iron 68 38-169 ug/dL Iron Saturation 23 15-55 % Vitamin B12 and Folate Order date: 09/24/2025 Reviewed date:10/10/2025 10:24:23 AM Interpretation: Performing Lab:[facility], [address] [facility], Phone - [phone], [facility]/Report: Vitamin B12 728 465-6982 pg/mL Folate (Folic Acid), Serum 7.5 >3.0 ng/mL A serum folate concentration of less than 3.1 ng/mL is considered to represent clinical deficiency. Hemoglobin A1c CLIA Waived Order date: 10/22/2025 Reviewed date:10/29/2025 08:57:13 AM Interpretation: Performing Lab: Notes/Report: Hemoglobin A1c 8.6 4.0 - 6.4 % Rapid Plasma Reagin (RPR) Te st With Reflex to Quantitative RPR and Confirmatory Treponema pallidum Antibodies Order date: 09/10/2025 Reviewed date:09/12/2025 04:09:36 PM Interpretation: Performing Lab:[facility] [address], Phone - [phone], Director - [facility] Notes/Report: RPR Non Reactive Non Reactive Hepatitis C Virus Antibody w /Rflx to Quantitative Real-time PCR ([id number]) Order date: 09/10/2025 Reviewed date:09/12/2025 04:09:36 PM Interpretation: Performing Lab:[facility] [place], [address] [place], [place] [address]ox [facility], Phone - [phone], Director - [facility] Notes/Report: HCV Ab Non Reactive Non Reactive Interpretation: Not infected with HCV unless early or acute infection is suspected (which may be delayed in an immunocompromised individual), or other evidence exists to indicate HCV infection. Hepatitis B Surface Antigen (HBsAg Screen) Order date: 09/10/2025 Reviewed date:09/12/2025 04:09:36 PM Interpretation: Performing Lab:[facility] [address] [place], [place] [address]ox [facility], Phone - [phone], Director - [facility] Notes/Report: HBsAg Screen Negative Negative HIV Screen *HIV 1, 2 Ab, p24 Ag ([id number]) Order date: 09/10/2025 Reviewed date:09/12/2025 04:09:36 PM Interpretation: Performing Lab:[facility] [place] [address] [place], [place] [address]ox [facility], Phone - [phone], Director - [facility] Notes/Report: HIV Ab/p24 Ag Screen Non Reactive Non Reactive HIV-1/HIV-2 antibodies and HIV-1 p24 antigen were NOT detected. There is no laboratory evidence of HIV infection. HIV Negative Hemoglobin A1c* Order date: 09/10/2025 Reviewed date:09/12/2025 04:09:36 PM Interpretation: Performing Lab:[facility] [address] [facility], Phone - [phone], [facility] Notes/Report: Hemoglobin A1c 7.5 4.8-5.6 % H . Prediabetes: 5.7 - 6.4 Diabetes: >6.4 Glycemic control for adults with diabetes: <7.0 CMP 14 Comprehensive Metabol ic Panel* Order date: 09/10/2025 Reviewed date:09/12/2025 04:09:36 PM Interpretation: Performing Lab:[facility], [address] [facility], Phone - [phone], Director - [facility] Notes/Report: Glucose 390 70-99 mg/dL H BUN 27 6-24 mg/dL H Creatinine 1.50 0.76-1.27 mg/dL H eGFR 55 >59 mL/min/1.73 L BUN/Creatinine Ratio 18 9-20 Sodium 136 134-144 mmol/L Potassium 4.3 3.5-5.2 mmol/L Chloride 100 96-106 mmol/L Carbon Dioxide, Total 20 20-29 mmol/L Calcium 9.1 8.7-10.2 mg/dL Protein, Total 6.3 6.0-8.5 g/dL Albumin 4.1 3.8-4.9 g/dL Globulin, Total 2.2 1.5-4.5 g/dL Bilirubin, Total 0.3 0.0-1.2 mg/dL Alkaline Phosphatase 146 47-123 IU/L H AST (SGOT) 18 0-40 IU/L ALT (SGPT) 36 0-44 IU/L QuantiFERON-TB Gold Plus ([id number]) Order date: 02/02/2025 Reviewed date:02/07/2025 09:10:49 AM Interpretation: Performing Lab:[facility], [address] [facility], Phone - [phone], [facility]/Report: QuantiFERON Incubation Incubation performed. QuantiFERON-TB Gold Plus Negative Negative No response to M tuberculosis antigens detected. Infection with M tuberculosis is unlikely, but high risk individuals should be considered for additional testing (ATS/IDSA/CDC Clinical Practice Guidelines, 2017). The reference range is an Antigen minus Nil result of <0.35 IU/mL. Chemiluminescence immunoassay methodology QuantiFERON Criteria QuantiFERON-TB Gold Plus is a qualitative indirect test for M tuberculosis infection (including disease) and is intended for use in conjunction with risk assessment, radiography, and other medical and diagnostic evaluations. The QuantiFERON-TB Gold Plus result is determined by subtracting the Nil value from either TB antigen (Ag) value. The Mitogen tube serves as a control for the test. QuantiFERON TB1 Ag Value 0.02 QuantiFERON TB2 Ag Value 0.02 QuantiFERON Nil Value 0.02 QuantiFERON Mitogen Value >10.00 Request Problem TNP Test not performed. No lavender top tube submitted. TEST: [id number] CBC With Differential/Platelet Request Problem TNP Test not performed. No serum gel received. TEST: [id number] Comp. Metabolic Panel (14) CMP 14 Comprehensive Metabol ic Panel* Order date: 02/02/2025 Reviewed date:02/07/2025 09:10:49 AM Interpretation: Performing Lab:[facility], [address] [facility], Phone - [phone], [facility] Notes/Report: Glucose TNP Test not perfo rmed. No serum gel received. BUN TNP Test not perfo rmed Creatinine TNP Test not perfo rmed Sodium TNP Test not perfo rmed Potassium TNP Test not perfo rmed Chloride TNP Test not perfo rmed Carbon Dioxide, Total TNP Sandy t not performed Calcium TNP Test not perfo rmed Protein, Total TNP Test not p erformed Albumin TNP Test not perfo rmed Bilirubin, Total TNP Test not performed Alkaline Phosphatase TNP Test not performed AST (SGOT) TNP Test not perfo rmed ALT (SGPT) TNP Test not perfo rmed CBC With Differential/Platel et* Order date: 02/02/2025 Reviewed date:02/07/2025 09:10:49 AM Interpretation: Performing Lab:[facility], [address] [facility] [place], Phone - [phone], Director [facility] Notes/Report: WBC TNP Test not perfo rmed. No lavender top tube submitted. RBC TNP Test not perfo rmed Hemoglobin TNP Test not perfo rmed Hematocrit TNP Test not perfo rmed Platelets TNP Test not perfo rmed Neutrophils TNP Test not perf ormed Lymphs TNP Test not perfo rmed Monocytes TNP Test not perfo rmed Eos TNP Test not perfo rmed Lymphs (Absolute) TNP Test no t performed Eos (Absolute) TNP Test not p erformed Baso (Absolute) TNP Test not performed Lipid Panel* Order date: 09/10/2025 Reviewed date:09/12/2025 04:09:36 PM Interpretation: Performing Lab:[facility] [place], [address] [place] [address], Phone - [phone], [facility] Notes/Report: Cholesterol, Total 127 100-199 mg/dL Triglycerides 268 0-149 mg/dL H HDL Cholesterol 25 >39 mg/dL L VLDL Cholesterol [place] 43 5-40 mg/dL H LDL Chol Calc (NIH) 59 0-99 mg/dL TSH Rfx on Abnormal to Free T4 Order date: 09/10/2025 Reviewed date:09/12/2025 04:09:36 PM Interpretation: Performing Lab:[facility] [place], [address] [place] [address], Phone - [phone], [facility] Notes/Report: TSH 2.530 0.450-4.500 uIU/mL CBC With Differential/Platel et* Order date: 09/10/2025 Reviewed date:09/12/2025 04:09:36 PM Interpretation: Performing Lab:[facility] [place], [address] [place] [address], Phone - [phone], [facility] Notes/Report: WBC 8.1 3.4-10.8 x10E3/uL RBC 3.91 4.14-5.80 x10E6/uL L Hemoglobin 12.3 13.0-17.7 g/dL L Hematocrit 37.1 37.5-51.0 % L MCV 95 79-97 fL MCH 31.5 26.6-33.0 pg MCHC 33.2 31.5-35.7 g/dL RDW 12.4 11.6-15.4 % Platelets 204 150-450 x10E3/uL Neutrophils 66 Not Estab. % Lymphs 21 Not Estab. % Monocytes 9 Not Estab. % Eos 3 Not Estab. % Basos 1 Not Estab. % Neutrophils (Absolute) 5.3 1.4-7.0 x10E3/uL Lymphs (Absolute) 1.7 0.7-3.1 x10E3/uL Monocytes(Absolute) 0.7 0.1-0.9 x10E3/uL Eos (Absolute) 0.2 0.0-0.4 x10E3/uL Baso (Absolute) 0.1 0.0-0.2 x10E3/uL Immature Granulocytes 0 Not Estab. % Immature Grans (Abs) 0.0 0.0-0.1 x10E3/uL Reason For Referral Referral Date 05/09/2025 Referral Status Open Reason INCARCERATED, PAINFU L UMBILICAL HERNIA Diagnosis 1 Umbilical hernia (K4 2.9) [facility] Referring Provider First Name Adrian Referring Provider Last Name Svetlana Referring Provider Speciality Internal edicine Referred Provider Specialty Surgery General Notes Jaylene Rachel RN 09/2025 03:08:35 PM > Referral sent Unable to reach client by phone to notify him of referral Letter sent, Jaylene Rachel RN 05/10/2025 01:59:06 PM > attempted to contact client to inform him of referral and obtained a message stating no voice mail set up yet, Jazmyn Whaley RN 06/07/2025 10:59:26 AM > refaxed. Fax number corrected. Clinical Notes General Surgery, [address] [facility] [address], [place] [address], , fax [phone] Referral Priority Urgent Referral Date 05/09/2025 Referral Status Open Reason ACTINIC KERATOSES ON SCALP Diagnosis 1 Actinic keratoses (L 57.0) [facility] Referring Provider First Name Adrian Referring Provider Last Name Svetlana Referring Provider Speciality Internal edicine Referred Provider Specialty Dermatology General Notes Referral sent patien t letter sent Clinical Notes [facility], [facility] [address], Floor [address], [address], , Referral Priority Routine Referral Date 09/10/2025 Referral Status Open Reason Home sleep study wit h reflex to [facility] if ABNL, prefers [facility] due to insurance, [place] 18 Diagnosis 1 Sleep apnea in adult (G47.33) Ref[facility] Referring Provider First Name Adrian Referring Provider Last Name Svetlana Referring Provider Speciality Internal M edicine Referred Provider Specialty Sleep Medici ne General Notes Jaylene Rachel RN 12:37:31 PM >call to [facility] obtained voice mail message left requesting return call, Jaylene Rachel RN 10/09/2025 03:07:49 PM >faxed referral letter mailed Clinical Notes [facility], [address] [facility], [facility], Phone [phone], fax [phone] Referral Priority Routine Referral Date 09/10/2025 Referral Status Open Reason Prefers [place] due to insurance, had prior referral but surgeon's office did not receive referral Diagnosis 1 Umbilical hernia (K4 2.9) [facility] Referring Provider First Name Adrian Referring Provider Last Name Svetlana Referring Provider Speciality Internal edicine Referred Provider Specialty Surgery General Notes Jaylene Rachel RN 08:24:47 AM >confirmed taking client's insurance referral faxed letter mailed, Marguerite Pope 11/05/2025 08:36:37 AM >Clients Luan Jennings left a message that her Uncle was unable to schedule an appointment b/c [facility] does not have the information. Referral refaxed. Clinical Notes [facility] [address] , [address] [facility], phone [phone], fax [phone] Referral Priority Routine Referral Date 09/24/2025 Referral Status Open Reason screening colonoscop y Diagnosis 1 Screening for colon cancer (Z12.11) Referral [facility] Referring Provider First Name Adrian Referring Provider Last Name Svetlana Referring Provider Speciality Internal edicine Referred Provider Specialty Gastroentero logy General Notes Jaylene Rachel RN 12:44:13 PM >confirmed accepting insurance referral faxed letter mailed Clinical Notes [facility], [address] [facility], [address], [facility], , fax [phone] Referral Priority Routine Addressed Referral details can be found under 'Consultation Request Notes' section Medications Medication SIG (Take, Route, Frequency, Duration) Notes Start Date End Date Diagnosis (ICD Code) Status Tamsulosin HCl 0.4 MG Capsule 1 capsule Orally Once a day; Duration: 30 days Lower urinary obstructive symptom (ICD_10 - N13.9) Active Nicotine Polacrilex 2 MG Lozenge as directed Mouth/Throat Every 2 hours as needed; Duration: 30 days Nicotine depende nce (ICD_10 - F17.200) Active Gabapentin 300 mg Capsule TAKE 1 CAPSULE BY MOUTH TWICE A DAY; Duration: 30 Neuropathic pain (ICD_10 - M79.2) Active Nicotine Step 1 21 MG/24HR Patch 24 Hour 1 patch to skin Transdermal Once a day; Duration: 30 days Nicotine depende nce (ICD_10 - F17.200) Active Sertraline HCl 200 MG Capsule 1 tablet Orally Once a day; Duration: 30 days Depression (ICD_ 10 - F32.9) Active buPROPion HCl ER (XL) 150 MG Tablet Extended Release 24 Hour 1 tablet in the morning Orally Once a day; Duration: 30 day(s) 06/04/2025 Depression (ICD_ 10 - F32.9) Active traZODone HCl 50 MG Tablet 1 tablet at bedtime as needed Orally Once a day; Duration: 30 day(s) 06/04/2025 Insomnia (ICD_10 - G47.00) Active Lisinopril-hydroCH LOROthiazide 10-12.5 MG Tablet 1 tablet Orally Once a day; Duration: 30 days Hypertension (ICD_10 - I10) Active Omeprazole 20 MG Capsule Delayed Release 1 capsule 1/2 to 1 hour before morning meal Orally Once a day; Duration: 30 days GERD (gastroesophageal reflux disease) (ICD_10 - K21.9) Active Farxiga 10 MG Tablet 1 tablet Orally Once a day; Duration: 30 days Diabetes (ICD_10 - E11.9) Active tiZANidine HCl 4 MG Tablet 1 tablet at bedtime as needed Orally Once a day; Duration: 30 days 01/18/2025 Muscle spasm of back (ICD_10 - M62.830) Active Labetalol HCl 200 MG Tablet TAKE 1 TABLET BY MOUTH TWICE A DAY Oral Twice a day; Duration: 30 days Hypertension (ICD_10 - I10) Active Atorvastatin Calcium 80 MG Tablet TAKE 1 TABLET BY MOUTH DAILY Oral Once a day; Duration: 30 days Hyperlipidemia (ICD_10 - E78.5) Active NIFEdipine ER Osmotic Release 90 MG Tablet Extended Release 24 Hour TAKE 1 TABLET BY MOUTH DAILY Oral Once a day; Duration: 30 days Hypertension (ICD_10 - I10) Active Social History Tobacco Use: Social History Observation Description Date Details (start date - stop date) Current Smoker NA - NA Sex Observation Social History Observation Description Sex Observation Male Sexual Orientation Social History Observation Description Sexual Orientation Straight or heterose xual Gender Identity Social History Observation Description Gender Identity Male SDOH Assessments Date Tool Assessment Assessment LOINC Value Assessment Notes Goals Interventions 10/22/20 PRAPARE (LOINC: 79735-1) Total Score: 10 Date Completed/Upda deangelo: 01/22/20 What is your current housing situation? 18335-3 I do not have housing (staying with others, in a hotel, in a half-way, living outside on the street, on a beach, or in a park) (ER56641-1) Are you worried about losing your housing? 64404-7 Yes (LA33-6) What is the highest level of school that you have finished? 57606-4 High school diploma or GED (RA81724-5) What is your current work situation? 08650-3 Otherwise unemployed but not seeking work (ex. 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 Check all that apply 17162-7 I do not have problems meeting my needs Has lack of transportation k ept you from medical appointments, meetings, work or from getting things needed for daily living? 85403-3 Yes, it has kept me from medical appointments or from getting my medications (RA55205-5) How often do you see or talk to people that you care about and feel close to? (For example: talking to friends on the phone, visiting friends or family, going to buddhist or club meetings) 60728-4 1 or 2 times a week (GA35451-5) How stressed are you? Stress is when someone feels tense, nervous, anxious, or can\t sleep at night because their mind is troubled 03714-0 Very much (MC83876-2) In the past year have you sp ent more than 2 nights in a row in a snf, longterm, shelter center, or juvenile correctional facility? 20792-9 Yes (LA33-6) Do you feel physically and emotionally safe where you currently live? 92334-1 Yes (LA33-6) In the past year, have you b een afraid of your partner or ex-partner? 37626-1 No (LA32-8) PRAPARE Score: 10 Social History Social Determinants Social Info Question Answer Notes PRAPARE Date Completed/Updated: 01/22/2025 What is your current housing situation? I do not have housing (staying with others, in a hotel, in a half-way, living outside on the street, on a beach, or in a park) Are you worried about losing your housing? Yes What is the highest level of school that you have finished? High school diploma or GED What is your current work situation? Oth erwise unemployed but not seeking work (ex. 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 Check all that apply I do not have problems meeting my needs Has lack of transportation k ept you from medical appointments, meetings, work or from getting things needed for daily living? Yes, it has kept me from medical appointments or from getting my medications How often do you see or talk to people that you care about and feel close to? (For example: talking to friends on the phone, visiting friends or family, going to buddhist or club meetings) 1 or 2 times a week How stressed are you? Stress is when someone feels tense, nervous, anxious, or can\t sleep at night because their mind is troubled Very much In the past year have you sp ent more than 2 nights in a row in a snf, longterm, shelter center, or juvenile correctional facility? Yes Do you feel physically and e motionally safe where you currently live? Yes In the past year, have you b een afraid of your partner or ex-partner? No PRAPARE Score: 10 Miscellaneous Social Info Question Answer Notes Method of learning: Preferred method of learning: Demo nstration,Hearing Primary Social History Social Info Question Answer Notes Living Arrangement Living Arrangement: Dependent Efraín burk Living with: Friend Is this a supportive environment? Yes Single Question Alcohol Screening How many times in the past year have you had (4 for women, or 5 for men) or more drinks in a day? 0 Employment Status Employment Status: Unemployed Illicit Substance Usage Illicit Substance Usage: No Alcohol Use Alcohol Use Frequency: Never Tobacco Use: Social Info Question Answer Notes Tobacco Control (Standard) Tobacco use: Current smoker Additional Findings: Tobacco user Heavy cigarett e smoker (20-39 cigs/day) Problems Problem Type SNOMED Code ICD Code Dates Problem Status W/U Status Risk Notes Problem Tobacco user (450891617) Nicotine dependence, unspecified, uncomplicated (F17.200) Added On:05/2025 Active confirmed Problem Hypertension (21218844) Hypertension (I10) Added On:08/30 Active confirmed Problem Hyperlipidemia (68865596) Hyperlipidemia (E78.5) Added On:08/30 Active confirmed Problem Gastroesophageal reflux disease (901137025) GERD (gastroesophageal reflux disease) (K21.9) Added On:07/2024 Active confirmed Problem Depression (777705143) Depression (F32.9) Added On:02/27 Active confirmed Problem Insomnia (949681786) Insomnia (G47.00) Added On:05/2025 Active confirmed Problem Hypertension (23865790) HTN (hypertension) (I10) Added On:03/29 Active confirmed Problem Type II diabetes mellitus without complication (542768231) Diabetes (E11.9) Added On:08/30 Active confirmed Problem Vitamin D deficiency (78142346) Vitamin D deficiency (E55.9) Added On:08/30 Active confirmed Problem Generalized anxiety disorder (43550678) REGINALDO (generalized anxiety disorder) (F41.1) Added On:03/29 Active confirmed Problem Anemia (832790017) Anemia (D64.9) Added On:08/30 Active confirmed Problem Overweight (758005808) Over weight (E66.3) Added On:02/27 Active confirmed Problem Obstructive sleep apnea syndrome (32668515) Sleep apnea in adult (G47.33) Added On:08/29 Active confirmed Problem Nicotine dependence (23270123) Nicotine dependence (F17.200) Added On:02/27 Active confirmed Problem Methamphetamine abuse (161853046) Methamphetamine abuse (F15.10) Added On:05/2025 Active confirmed Problem Cerebral infarction (994057483) Cerebral vascular accident (I63.9) Added On:08/30 Onset Date: 024 Active confirmed Problem Obesity (169468569) Obesity (BMI 30-39.9) (E66.9) Added On:05/2025 Active confirmed Problem Lower urinary tract obstructive syndrome (57092017) Lower urinary obstructive symptom (N13.9) Added On:02/27 Active confirmed Problem Depressed mood (658030223) Depressed mood (F32.9) Added On:12/31 Active confirmed Problem Cigarette smoker (02281730) Cigarette smoker (F17.210) Added On:08/29 Active confirmed Problem chronic kidney disease stage 3a (disorder) (688867736) CKD stage G3a/A1, GFR 45-59 and albumin creatinine ratio <30 mg/g (N18.31) Added On:05/2024 Active confirmed Vital Signs Vital Sign Value Notes Appt Date Heart Rate 75 /min 10/22/2025 Temperature 97.7 degrees Fahrenheit 08/30 Respiratory Rate 18 /min 10/22/2025 Blood pressure diastolic 84 mm Hg Oximetry 97 % 10/22/2025 Height 68 in 10/22/2025 Blood pressure systolic 124 mm Hg 09/30 Weight 250.4 lbs 10/22/2025 BMI 38.07 kg/m2 10/22/2025 Encounters Date Time Type Facility Location Provider Diagnosis 01/18/20 10:40 AM Office Visit, Est Pt., Level 4 (09532) [facility] [address] [place] [address] Hoa Short Cerebral vascular accident I63.9 ; Follow-up exam Z09 ; Vitamin D deficiency E55.9 ; CKD stage G3a/A1, GFR 45-59 and albumin creatinine ratio <30 mg/g N18.31 ; Hypertension I10 ; Muscle spasm of back M62.830 ; Neuropathic pain M79.2 ; Hyperlipidemia E78.5 ; GERD (gastroesophageal reflux disease) K21.9 ; Depressed mood F32.9 and Back pain M54.9 02/03/20 25 10:30 AM Office Visit, Est Pt., Level 3 ([id number]) [facility] [address] [place] [address] Manuel Pierce Nicotine dependence, unspecified, uncomplicated F17.200 ; Dietary counseling Z71.3 ; Obesity (BMI 30-39.9) E66.9 ; 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 ; CVA (cerebral vascular accident) I63.9 ; Adult general medical exam Z00.00 and Encounter for screening for respiratory tuberculosis Z11.1 02/03/20 25 12:20 PM Office Visit [address] [address] Manuel Pierce Adult general medical exam Z00.00 and Encounter for screening for respiratory tuberculosis Z11.1 02/16/20 25 10:45 AM Office Visit, New Pt., Level 2 ([id number]) [facility] [address] [facility] [address] Tosha Mart Depression F32.9 ; 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 ; Cerebral vascular accident I63.9 ; Dietary counseling Z71.3 ; Obesity (BMI 30-39.9) E66.9 and Nicotine dependence, unspecified, uncomplicated F17.200 03/08/20 25 02:20 PM Office Visit, Est Pt., Level 3 (19010) [place] [address] [place] [address] Hoa Short Over weight E66.3 ; Lower urinary obstructive symptom N13.9 ; Depression F32.9 ; Nicotine dependence F17.200 ; Cerebral vascular accident I63.9 ; Hypertension I10 and CKD stage G3a/A1, GFR 45-59 and albumin creatinine ratio <30 mg/g N18.31 03/12/20 25 11:00 AM Office Visit, Est Pt., Level 4 (67525) [address] [place] [address] Aminata Ricardo Depression F32.9 ; 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 and Nicotine dependence, unspecified, uncomplicated F17.200 04/16/20 25 10:00 AM Telehealth Office Visit, Est Pt., Level 4 (09208) [address] [address] Aminata Davion Depression F32.9 ; 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 ; Nicotine dependence, unspecified, uncomplicated F17.200 ; REGINALDO (generalized anxiety disorder) F41.1 and Hypertension I10 05/09/20 25 11:00 AM Office Visit, Est Pt., Level 3 (79333) [address] [address] Adrian Mota Umbilical hernia K42.9 and Actinic keratoses L57.0 06/04/20 25 01:40 PM Office Visit, Est Pt., Level 4 (12767) [address] [address] Aminata Ricardo Depression F32.9 ; Insomnia G47.00 and REGINALDO (generalized anxiety disorder) F41.1 09/10/20 25 10:20 AM Office Visit, Est Pt., Level 4 (72073) [place] [address] [place] [address] Adrian Mota Edema leg R60.0 ; Sleep apnea in adult G47.33 ; Fatigue R53.83 ; Exposure to potential infection Z20.9 ; Over weight E66.3 ; Hyperlipidemia E78.5 ; Screening for diabetes mellitus Z13.1 ; Screening for colon cancer Z12.11 ; Cigarette smoker F17.210 and Umbilical hernia K42.9 09/24/20 25 10:00 AM Office Visit, Est Pt., Level 3 (32778) [place] [address] [place] [address] Adrian Mota Diabetes E11.9 ; CKD stage G3a/A1, GFR 45-59 and albumin creatinine ratio <30 mg/g N18.31 ; Anemia D64.9 ; Over weight E66.3 ; Hypertension I10 ; Hyperlipidemia E78.5 and Screening for colon cancer Z12.11 10/22/20 10:00 AM Office Visit, Est Pt., Level 3 (30138) [place] [address] [place] [address] Adrian Mota Diabetes E11.9 ; Hypertension I10 ; CKD stage G3a/A1, GFR 45-59 and albumin creatinine ratio <30 mg/g N18.31 ; Hyperlipidemia E78.5 ; Over weight E66.3 and Cerebral vascular accident I63.9 01/23/20 10:29 AM Telephone Encounter [address] [place] [address] Hoa Harris 01/23/20 10:34 AM Telephone Encounter [address] [place] [address] Hoa Harris 02/16/20 09:51 AM Telephone Encounter [address] [address] Manuel Rust Hypertension I10 02/24/20 10:49 AM Telephone Encounter [address] [address] Manuel Rust Hyperlipidemia E78.5 ; Hypertension I10 ; Muscle spasm of back M62.830 ; Neuropathic pain M79.2 and GERD (gastroesophageal reflux disease) K21.9 02/29/20 08:01 AM Telephone Encounter [address] [address] Manuel Rust Hypertension I10 05/22/20 10:21 AM Telephone Encounter [address] [place] [address] Aminata Ricardo Depression F32.9 05/23/20 01:31 PM Telephone Encounter [facility] [place] [address] Adrian Mota 05/31/20 10:20 AM Telephone Encounter [address] [facility] [place] [address] Adrian Mota 06/05/20 02:30 PM Telephone Encounter [place] [address] [place] [address] Adrian Mota 11/05/20 08:39 AM Telephone Encounter [facility] [address] [place] [address] Adrian Mota 11/15/20 02:28 PM Telephone Encounter [facility] [address] [place] [address] Adrian Mota Assessments Encounter Date Diagnosis (ICD Code) Assessment Notes Treat ment Notes Section Notes 05/09/2025 Umbilical hernia (ICD-10 - K42.9) 05/09/2025 Actinic keratoses (ICD-10 - L57.0) 05/22/2025 Depression (ICD-10 - F32.9) 06/04/2025 Depression (ICD-10 - F32.9) 06/04/2025 Insomnia (ICD-10 - G47.00) 03/12/2025 Depression (ICD-10 - F32.9) Diagnoses based on current findings and may change director time. No evidence of imminent harm to self or others. 02/28/2025 Hypertension (ICD-10 - I10) 03/08/2025 Over weight (ICD-10 - E66.3) 03/08/2025 Lower urinary obstructive symptom (ICD-10 - N13.9) 02/15/2025 Depression (ICD-10 - F32.9) Diagnoses based on current findings and may change director time. No evidence of imminent harm to self or others. 02/15/2025 Methamphetamine abus e (ICD-10 - F15.10) Diagnoses based on current findings and may change director time. No evidence of imminent harm to self or others. 02/02/2025 Adult general medica l exam (ICD-10 - Z00.00) 02/15/2025 Hypertension (ICD-10 - I10) 02/23/2025 Hyperlipidemia (ICD- 10 - E78.5) 01/18/2025 Cerebral vascular accident (ICD-10 - I63.9) 01/18/2025 Follow-up exam (ICD- 10 - Z09) 02/02/2025 Nicotine dependence, unspecified, uncomplicated (ICD-10 - F17.200) 04/16/2025 Depression (ICD-10 - F32.9) Diagnoses based on current findings and may change director time. No evidence of imminent harm to self or others. 09/10/2025 Sleep apnea in adult (ICD-10 - G47.33) 09/10/2025 Edema leg (ICD-10 - R60.0) 09/24/2025 Diabetes (ICD-10 - E11.9) 04/16/2025 Methamphetamine abus e (ICD-10 - F15.10) Diagnoses based on current findings and may change director time. No evidence of imminent harm to self or others. 09/24/2025 CKD stage G3a/A1, GF R 45-59 and albumin creatinine ratio <30 mg/g (ICD-10 - N18.31) 10/22/2025 Hypertension (ICD-10 - I10) 10/22/2025 Diabetes (ICD-10 - E11.9) 10/22/2025 CKD stage G3a/A1, GF R 45-59 and albumin creatinine ratio <30 mg/g (ICD-10 - N18.31) 09/24/2025 Anemia (ICD-10 - D64.9) 09/10/2025 Fatigue (ICD-10 - R53.83) 01/18/2025 Vitamin D deficiency (ICD-10 - E55.9) 02/23/2025 Hypertension (ICD-10 - I10) 02/15/2025 Cerebral vascular accident (ICD-10 - I63.9) Diagnoses based on current findings and may change director time. No evidence of imminent harm to self or others. 02/02/2025 Dietary counseling (ICD-10 - Z71.3) 02/02/2025 Encounter for screening for respiratory tuberculosis (ICD-10 - Z11.1) 03/08/2025 Depression (ICD-10 - F32.9) 03/12/2025 Methamphetamine abus e (ICD-10 - F15.10) Diagnoses based on current findings and may change director time. No evidence of imminent harm to self or others. 04/16/2025 Nicotine dependence, unspecified, uncomplicated (ICD-10 - F17.200) Diagnoses based on current findings and may change director time. No evidence of imminent harm to self or others. 06/04/2025 REGINALDO (generalized anxiety disorder) (ICD-10 - F41.1) 03/12/2025 Nicotine dependence, unspecified, uncomplicated (ICD-10 - F17.200) Diagnoses based on current findings and may change director time. No evidence of imminent harm to self or others. 03/08/2025 Nicotine dependence (ICD-10 - F17.200) 02/02/2025 Obesity (BMI 30-39.9 ) (ICD-10 - E66.9) 02/15/2025 Dietary counseling (ICD-10 - Z71.3) Diagnoses based on current findings and may change director time. No evidence of imminent harm to self or others. 02/23/2025 Muscle spasm of back (ICD-10 - M62.830) 01/18/2025 CKD stage G3a/A1, GF R 45-59 and albumin creatinine ratio <30 mg/g (ICD-10 - N18.31) 04/16/2025 REGINALDO (generalized anxiety disorder) (ICD-10 - F41.1) Diagnoses based on current findings and may change director time. No evidence of imminent harm to self or others. 09/24/2025 Over weight (ICD-10 - E66.3) 09/10/2025 Exposure to potentia l infection (ICD-10 - Z20.9) 10/22/2025 Hyperlipidemia (ICD- 10 - E78.5) 09/10/2025 Over weight (ICD-10 - E66.3) 10/22/2025 Over weight (ICD-10 - E66.3) 09/24/2025 Hypertension (ICD-10 - I10) 02/02/2025 Methamphetamine abus e (ICD-10 - F15.10) Residential treatment Patient is competent to self-admnister medications 01/18/2025 Hypertension (ICD-10 - I10) 02/23/2025 Neuropathic pain (ICD-10 - M79.2) 02/15/2025 Obesity (BMI 30-39.9 ) (ICD-10 - E66.9) Diagnoses based on current findings and may change director time. No evidence of imminent harm to self or others. 03/08/2025 Cerebral vascular accident (ICD-10 - I63.9) 04/16/2025 Hypertension (ICD-10 - I10) Diagnoses based on current findings and may change director time. No evidence of imminent harm to self or others. 09/10/2025 Hyperlipidemia (ICD- 10 - E78.5) 03/08/2025 Hypertension (ICD-10 - I10) 02/23/2025 GERD (gastroesophage al reflux disease) (ICD-10 - K21.9) 02/15/2025 Nicotine dependence, unspecified, uncomplicated (ICD-10 - F17.200) Diagnoses based on current findings and may change director time. No evidence of imminent harm to self or others. 01/18/2025 Muscle spasm of back (ICD-10 - M62.830) 02/02/2025 CVA (cerebral vascul ar accident) (ICD-10 - I63.9) 09/24/2025 Hyperlipidemia (ICD- 10 - E78.5) 10/22/2025 Cerebral vascular accident (ICD-10 - I63.9) 09/24/2025 Screening for colon cancer (ICD-10 - Z12.11) 09/10/2025 Screening for diabet es mellitus (ICD-10 - Z13.1) 01/18/2025 Neuropathic pain (ICD-10 - M79.2) 02/02/2025 Adult general medica l exam (ICD-10 - Z00.00) 03/08/2025 CKD stage G3a/A1, GF R 45-59 and albumin creatinine ratio <30 mg/g (ICD-10 - N18.31) 02/02/2025 Encounter for screening for respiratory tuberculosis (ICD-10 - Z11.1) 01/18/2025 Hyperlipidemia (ICD- 10 - E78.5) 09/10/2025 Screening for colon cancer (ICD-10 - Z12.11) 09/10/2025 Cigarette smoker (ICD-10 - F17.210) 01/18/2025 GERD (gastroesophage al reflux disease) (ICD-10 - K21.9) 01/18/2025 Depressed mood (ICD- 10 - F32.9) 09/10/2025 Umbilical hernia (ICD-10 - K42.9) 01/18/2025 Back pain (ICD-10 - M54.9) 01/18/2025 Other 02/15/2025 Other Encouraged counseling. Discussed treatment plan. Pt is agreeable and accepting of the treatment plan. The patient's questions answered and verbalized an understanding. Denies any further questions or concerns currently. Information for today's visit was collected from the patient's chart and today's interview. All information has been reviewed and confirmed with the patient during this evaluation. The patient was educated to contact residential staff or [facility] at [phone] if there is a need for an earlier appointment, medication or any medical concerns arise. The patient was also educated to call 911, [phone] or go to the nearest Emergency Department if a life-threatening side effect or new symptom arises such as: suicidal ideation, homicidal ideation, high risk behaviors, manic symptoms, psychotic symptoms, physical symptoms, or any other symptom that may be dangerous to self or others. The pt verbalizes an understanding. Diagnoses based on current findings and may change director time. No evidence of imminent harm to self or others. Plan Of Treatment Future Test Test Name Order Date Polysomnography 09/10/[address]: Lung Cancer Screening 09/10 Ultrasound : Renal Complete 09/24/2025 Insurance Providers Payer Name Payer Address Payer Phone Subscriber Number Group Number Insured Name Patient Relationship to Insured Coverage Start Date Coverage End Date [facility] [employer] [facility] [address] [place] [address] [id number] AugustfaizanRonny fontanez Self - patient is the insured 4 [employer] [address] [place] [address] [phone] [id number] AugustfaizanRonny fontanez Self - patient is the insured 5 Medical (General) History Medical History History ICD Code side pain (left) DOC: meth Surgical History Surgery Date(Month/Year) wrist surgery 1995 Hospitalization History Reason Date(Month/Year) stroke 05/21 stroke 05/22
== END 2025-11-16 14:13 | disposition home or self-care (01) ==
PROVIDERS: Visit Provider Internal Medicine
DX: N18.31 Chronic kidney disease, stage 3a (principal)
CPT/HCPCS: 76770